=== PATIENT | female | born 1975 | race Caucasian/White ===

== ENCOUNTER 2017-05-07 06:09 | Inpatient (IN) | payer SELFPAY ==
[2017-05-07] VITALS (9 sets, daily range): BP systolic 97–155; BP diastolic 58–85
[~2017-05-07] VITALS: Ht 154.9 cm; Wt 91.3 kg
--- NOTE | ~2017-05-07 | PR ---
[place], [place] PROGRESS NOTE NAME: ANTONIO HORTON UNIT #: [id number] ROOM: 415 DOCTOR: DANG MAGDALENO MD BIRTHDATE: [birth year] DOS: 05/08/2017 SUBJECTIVE: The patient was seen in the cardiology department just prior to her stress test today, 05/08/2017. She continues to have mild chest discomfort which she rates at a level 3 on a scale of 1-10. The chest discomfort is persistent and is not associated with diaphoresis, nausea or excessive dyspnea. Serial cardiac troponin levels have all been normal. Her electrocardiogram this morning continues to be unremarkable. PHYSICAL EXAMINATION: VITAL SIGNS: Her pulse is 58 and regular, blood pressure is 115/69. She is afebrile. NECK: Supple. She has no jugular distention. LUNGS: Respirations are unlabored and her chest is clear to auscultation and percussion. HEART: Has a regular rhythm with a fourth heart sound, but no other abnormalities. EXTREMITIES: Showed no edema. Thus far, she has no objective evidence for acute cardiac event. IMPRESSION: 1. Chest pain, myocardial infarction has been ruled out. 2. Lightheadedness. 3. History of perioperative atrial fibrillation on one occasion. 4. Obesity. PLAN: We will proceed with an exercise myocardial perfusion study and echocardiogram. Further recommendations depend upon the results of the studies. I thank the hospitalist physicians for asking our advice regarding her management. [place], [place] PROGRESS NOTE NAME: ANTONIO HORTON UNIT #: [id number] ROOM: 415 DOCTOR: DANG MAGDALENO MD BIRTHDATE: [birth year] DANG MAGDALENO MD CM:PNTRANS [id number] DANG MAGDALENO MD 05/08/171402 interface
[~2017-05-07 06:09] MED LIST: Amitriptyline H10 MG PO; BACLOFEN20 M1 PO; FENOFIBRATE54 MG PO; FLONASE ALLERG9.9 ML NAS; MELOXICAM15 MG PO; OXYCODONE HYDRO10 M2 PO; OXYCODONE-ACETAMINOP; PREDNISONE10 MG PO; ROBITUSSIN AC 110 ML PO
[2017-05-07 06:41] LABS: BASO % 0.4 % (0.0-1.0); EOS # 0.1 10*3/uL (0.0-0.4); EOS % 1.2 % (1.0-4.0); HEMATOCRIT 41.7 % (37.0-47.0); HEMOGLOBIN 13.4 g/dl (12.0-16.0); LYMPH # 2.6 10*3/uL (1.3-4.4); LYMPH % 26.1 % (27.0-41.0); MEAN CELL VOLUME 90.1 fl (81.0-99.0); MEAN CORPUSCULAR HGB 28.9 pg (27.0-31.0); MEAN CORPUSCULAR HGB CONC 32.1 g/dl (33.0-37.0); MEAN PLATELET VOLUME 9.4 fl (9.6-12.3); MONO # 0.7 10*3/uL (0.1-1.0); MONO % 7.4 % (3.0-9.0); NEUT # 6.3 10*3/uL (2.3-7.9); NEUT % 64.6 % (47.0-73.0); PLATELET COUNT AUTOMATED 394 10*3/uL (130-400); RED BLOOD COUNT 4.63 10*6/uL (4.10-5.10); RED CELL DISTRI WIDTH 13.3 % (0-14.5); WHITE BLOOD COUNT 9.8 10*3/uL (4.8-10.8)
[2017-05-07 06:52] LABS: ACT PARTIAL THROMBO TIME 23.2 SECONDS (20.8-31.5); INTERNATIONAL NORM RATIO 0.9 (2.0-3.5)
[2017-05-07 06:59] LABS: ALBUMIN 3.5 gm/dl (3.1-4.5); ALKALINE PHOSPHATASE 73 U/L (45-117); BUN 10 mg/dl (7-24); CHLORIDE 108 mmol/L (98-107); CREATININE 0.86 mg/dL (0.55-1.02); POTASSIUM 3.9 mmol/L (3.5-5.1); SGOT/AST 13 IU/L (3-35); SGPT/ALT 17 U/L (12-78); SODIUM 143 mmol/L (136-145); TOTAL PROTEIN 7.6 gm/dL (6.4-8.2)
[2017-05-07 07:02] LABS: TROPONIN I < 0.015 ng/ml (<0.045)
[2017-05-07 23:50] LABS: TROPONIN I < 0.015 ng/ml (<0.045)
[2017-05-08] VITALS: BP 91/48
[2017-05-08 00:54] VITALS: BP 94/32
[2017-05-08 04:00] VITALS: BP 98/54
[2017-05-08 04:02] VITALS: BP 108/54
[2017-05-08 06:34] LABS: BASO # 0.1 10*3/uL (0.0-0.1); BASO % 0.5 % (0.0-1.0); EOS # 0.2 10*3/uL (0.0-0.4); EOS % 1.6 % (1.0-4.0); HEMATOCRIT 40.6 % (37.0-47.0); HEMOGLOBIN 13.2 g/dl (12.0-16.0); LYMPH # 2.4 10*3/uL (1.3-4.4); MEAN CORPUSCULAR HGB 28.9 pg (27.0-31.0); MEAN CORPUSCULAR HGB CONC 32.5 g/dl (33.0-37.0); MEAN PLATELET VOLUME 9.3 fl (9.6-12.3); MONO # 0.6 10*3/uL (0.1-1.0); MONO % 6.6 % (3.0-9.0); NEUT # 6.1 10*3/uL (2.3-7.9); NEUT % 65.1 % (47.0-73.0); PLATELET COUNT AUTOMATED 349 10*3/uL (130-400); RED BLOOD COUNT 4.56 10*6/uL (4.10-5.10); RED CELL DISTRI WIDTH 13.2 % (0-14.5); WHITE BLOOD COUNT 9.4 10*3/uL (4.8-10.8)
[2017-05-08 07:03] LABS: BUN 8 mg/dl (7-24); CHLORIDE 107 mmol/L (98-107); CHOLESTEROL 244 mg/dL (<200); CREATININE 0.77 mg/dL (0.55-1.02); PHOSPHOROUS 2.8 mg/dL (2.5-4.9); POTASSIUM 3.7 mmol/L (3.5-5.1); SODIUM 141 mmol/L (136-145); TRIGLYCERIDES 191 mg/dl (<150); VLDL CHOLESTEROL 38 mg/dL (6-40)
[2017-05-08 07:12] LABS: HDL CHOLESTEROL 42 mg/dl (40-60); LDL CHOLESTEROL 164 mg/dL (9-159)
[2017-05-08 08:00] VITALS: BP 115/69
[2017-05-08 12:00] VITALS: BP 112/61
== END 2017-05-08 16:19 | disposition home or self-care (01) | DRG 313 ==
LOC: ED 06:09 → EDHOLD 07:49 → 4E 07:49
PROVIDERS: Student in an Organized Health Care Education/Training Program; ADMIT Emergency Medicine
DX: R07.9 Chest pain, unspecified (principal); E87.8 Other disorders of electrolyte and fluid balance, not elsewhere classified; I48.0 Paroxysmal atrial fibrillation; D72.810 Lymphocytopenia; G43.909 Migraine, unspecified, not intractable, without status migrainosus; E66.9 Obesity, unspecified; M54.9 Dorsalgia, unspecified; G89.29 Other chronic pain; E78.00 Pure hypercholesterolemia, unspecified; F41.9 Anxiety disorder, unspecified; F32.9 Major depressive disorder, single episode, unspecified; Z79.899 Other long term (current) drug therapy; Z90.710 Acquired absence of both cervix and uterus; Z90.49 Acquired absence of other specified parts of digestive tract; Z98.51 Tubal ligation status; Z91.5 Personal history of self-harm; Z82.49 Family history of ischemic heart disease and other diseases of the circulatory system; Z83.3 Family history of diabetes mellitus; Z88.8 Allergy status to other drugs, medicaments and biological substances; Z87.891 Personal history of nicotine dependence; Z68.38 Body mass index [BMI] 38.0-38.9, adult

== ENCOUNTER → 2017-11-12 | Outpatient (CLI) | payer OTHER | END | disposition home or self-care (01) | LOC: MAMMO 07:20 | DX: R92.8 Other abnormal and inconclusive findings on diagnostic imaging of breast (principal); Z85.3 Personal history of malignant neoplasm of breast ==

== ENCOUNTER 2018-04-23 13:23 | Emergency (ER) | payer OTHER ==
[~2018-04-23] VITALS: Ht 162.5 cm; Wt 92.1 kg
[2018-04-23 13:27] VITALS: BP 132/86
[2018-04-23] MEDS ORDERED: BACLOFEN20 M1 PO (13:27)
[2018-04-23] MEDS ORDERED: PROZAC20 MG PO (13:27)
[2018-04-23] MEDS ORDERED: CHLORZOXAZONE500 M2 PO (13:41)
[2018-04-23] MEDS ORDERED: NAPROSYN500 MG PO (13:41)
== END 2018-04-23 16:20 | disposition home or self-care (01) ==
LOC: ED 13:23
DX: M54.42 Lumbago with sciatica, left side (principal); R03.0 Elevated blood-pressure reading, without diagnosis of hypertension; I48.91 Unspecified atrial fibrillation; G89.29 Other chronic pain; E78.00 Pure hypercholesterolemia, unspecified; Z90.710 Acquired absence of both cervix and uterus; Z90.49 Acquired absence of other specified parts of digestive tract; Z88.8 Allergy status to other drugs, medicaments and biological substances; Z88.6 Allergy status to analgesic agent; Z79.899 Other long term (current) drug therapy